=== PATIENT | female | born 1950 | race Caucasian/White ===

== ENCOUNTER 2017-02-28 09:15 | Day surgery (SDC) | payer OTHER ==
[~2017-02-28] VITALS: Ht 165.1 cm; Wt 80.8 kg
[2017-02-28] VITALS (12 sets, daily range): BP systolic 110–127; BP diastolic 66–78; PULSE 64–79; RESP 8–18; O2SAT 93–98
[2017-02-28] MEDS: Lactated Ringer's 1,000 ML IV SCH ×2 (05:42→10:50)
[~2017-02-28 09:15] MED LIST: CALC-140 PO; CETI10CA PO; CHOL200047 PO; CeFAZolin 2 Gm/50 mL D5W IV Premix IV ONE; MULT-1018 PO; TRM50C PO; VIT1TABL83 PO
[2017-02-28] MEDS ORDERED: fentaNYL-PF 50 mCg/mL 2 mL Inj ONE (09:16)
[2017-02-28] MEDS ORDERED: Dexamethasone 4 mg/mL Inj ONE (09:16)
[2017-02-28] MEDS ORDERED: Propofol 10,000 mCg/mL 20 mL Inj ONE (09:16)
[2017-02-28] MEDS ORDERED: Ondansetron 2 mg/mL 2 mL Inj ONE (09:16)
[2017-02-28] MEDS ORDERED: CeFAZolin Inj 2 gm / 50mL D5W IV ONE (09:23)
--- NOTE | 2017-02-28 10:40 | PCM.HPANE ---
Patient Data Date of Service: Feb 28, 2017 Surgeon Admitting Provider: Attending Provider:Alberto Beltrán DO Primary Care Physician:Rich Campbell MD Other Provider:Carrie Nunez Anesthesia Reason for Visit Left Extensor Pollicis Longus Tendon Rupture Ht/WT & BMI Height (Feet): 5 Height (Inches): 5.00 Weight (Kilograms): 80.8 Body Mass Index 29.00 Allergies Coded Allergies: Sulfa (Sulfonamide Antibiotics) (Verified Allergy, Unknown, 11/13/16) Past Anesthesia History Anesthesia History: Denies:: Anesthesia Reactions, Fam Anesthesia Reaction Diabetes History Hx Diabetes?: No MRSA MRSA: No Medications Hypertension Medication: Yes Home Meds Incl Beta Louise: No Reported Medications Calcium Carbonate/Vitamin D3 (Calcium + Vitamin D Tablet)1 Each Tablet1 Each PO DAILY 02/24/17 Cholecalciferol (Vitamin D3) (Vitamin D3)2,000 Unit Capsule2,000 Unit PO DAILY 02/24/17 Vit B Comp/C/FA/Iron/Vit E (Vitamin B Complex Tablet)1 Each Tablet1 Each PO DAILY 02/24/17 Multivitamin (Multi Vitamin Daily)1 Each Tablet1 Each PO DAILY 30 Days Ref 0 02/24/17 Cetirizine HCl (Zyrtec)10 Mg Amarjed69 Mg PO HS #30 CAPSULE Ref 0 02/24/17 Triamterene (Dyrenium)50 Mg Ocdwhic52 Mg PO DAILY 02/24/17 History History of ENT Problems?: Yes HEENT History: Positive for:: TMJ (grinds teeth, wears nightguard) Denies:: Cataracts Glaucoma Hearing Problem Hx of Heart Problems?: Yes Cardiovascular History: Positive for:: Hypertension Denies:: AICD Abdominal Aortic Aneurism Chest Pain Congestive Heart Failure Coronary Artery Disease Edema Heart Murmur Irregular Heartbeat Pacemaker Peripheral Vascular Rheumatic Fever Hx of Respiratory Problem?: No Respiratory History: Denies:: Asthma COPD Emphysema Oxygen Administration Pneumonia Tuberculosis Use of C-PAP Machine Use of Inhalers / NEBS Hx Neurologic Problems?: No Neurological History: Denies:: Alzheimer's Disease CVA Headaches Multiple Sclerosis Parkinson's Disease Seizures Hx of GI Problems?: No Gastrointestinal History: Denies:: Cirrhosis Gall Bladder Disease Gastroesphageal Reflux Gastrointestinal Bleeding Heartburn Hepatitis Hiatal Hernia Liver Disease Rectal Bleeding Hx of Problems?: No Genitourinary History: Denies:: Kidney Stones Urinary Tract Infection Female Hx: Denies:: Currently (post menopausal) Problems with Breasts? (benign breast cyst) Skin History: Denies:: History Skin Disorders? Pressure Ulcers Hx Musculoskeletal Problems?: Yes Musculoskeletal History: Positive for:: Musculoskeletal Trauma (left arm current admission problem- fx 10/2016) Osteoarthritis (knees) Denies:: Fibromyalgia Joint Replacement Myasthenia Gravis Systemic Lupus Hx of Psycho/Social Problems?: No Psycho Social History: Denies:: Anxiety Hx Depression Hx Surgeries?: Yes (knee scope, carpal tunnel release) Hx Any Other Health Problems?: Yes Other History: Denies:: Cancer Thyroid Disease History Blood Transfusions: Positive for:: Accept Blood Products? Denies:: Blood Transfusions Hx Diabetes: No Hx Alcohol Use: YesAlcoholic Drinks Per Day: one glass wine dailyHx Substance Use: No Smoking Status: Never Smoker Have You Smoked inLast 12 mo: No Stop/Bang S-Snoring: Do You Snore Loudly: No T-Tired: feel tired, fatigued: No O-Obsered: Observed not breath: No P-Blood Pressure: treated: Yes B- Body Mass Index > 35 kg/m2: No A- Age over 50: Yes N- Neck Large Circumference: No G- Gender Male: No YASMINE Total Score: 2 YASMINE Risk Assessment: Low Risk, <3 Yes Risk Assessment Category Category 1A: Patient has history of documented sleep apnea, and HAS NOT received any narcotic, sedative or anesthesia administration during this stay. Category 1B: Patient has history of documented sleep apnea, and HAS received any narcotic , sedative or anesthesia administration during this stay Category 2: Patient has SUSPECTED Obstructive Sleep Apnea, and HAS received any narcotic , sedative or anesthesia administration during this stay. Category 3: Patient has SUSPECTED Obstructive Sleep Apnea and HAS NOT received narcotic, sedative or anesthesia administration during this stay. Category 4: Outpatient in Procedural Areas with known sleep apnea or who screen positive for High Risk via the STOP/BANG questionnaire. Exam Exam Vital Signs Vital Signs Date Time Temp Pulse Resp B/P Pulse Ox O2 Delivery O2 Flow Rate FiO2 02/28/17 09:46 36.4 70 16 110/75 96 Room Air General Appearance: Alert, Oriented X3, Cooperative, No Acute Distress HEENT/AIRWAY: MP 2 Lungs: Normal Air Movement Heart: Exam Unremarkable Meds/Labs/Diagnostics Admission Meds Current Medications Lactated Ringer's (Lr) 1,000 ml @ 120 mls/hr [id number] IV Last administered on t 05:42; Start 02/28/17 at 05:00; Stop 02/28/17 at 13:19 Plan Impression Patient chart reviewed, patient interviewed and anesthestic plan with risks, benefits, and alternatives discussed, and informed consent obtained. NPO Status: 02/27 at 1930 ASA Physical Status: ASA2 Mod Systemic Disease Anesthetic Plan: GA Bene/Risks/Altern/Consents: Yes HP Complete Prior to Induction: Yes Gunnar Palencia MD Feb 28, 2017 10:20
[2017-02-28] MEDS ORDERED: Lactated Ringer's 1,000 ML IV SCH (10:47)
[2017-02-28] MEDS ORDERED: Lactated Ringer's 500 ML IV PRN (10:47)
[2017-02-28] MEDS ORDERED: Dexamethasone 4 mg/mL Inj IVPUSH PRN (10:50)
[2017-02-28] MEDS ORDERED: Ondansetron 2 mg/mL 2 mL Inj IVPUSH PRN (10:50)
[2017-02-28] MEDS ORDERED: MetoCLOpramide 5 mg/mL 2 mL Inj IVPUSH PRN (10:50)
[2017-02-28] MEDS ORDERED: Labetalol 5 mg/mL 4 mL Inj IV PRN (10:50)
[2017-02-28] MEDS ORDERED: Phenylephrine 10,000 mCg/mL Inj IVPUSH PRN (10:50)
[2017-02-28] MEDS ORDERED: fentaNYL-PF 50 mCg/mL 2 mL Inj IVPUSH PRN (10:50)
[2017-02-28] MEDS ORDERED: EPHEDrine Sulfate 50 mg/mL Inj IVPUSH PRN (10:50)
[2017-02-28] MEDS ORDERED: Atropine 0.4 mg/mL Inj IVPUSH PRN (10:50)
[2017-02-28] MEDS ORDERED: hydrALAZINE 20 mg/mL Inj IVPUSH PRN (10:50)
[2017-02-28] MEDS ORDERED: Lidocaine 1%-Epi 1:100,000 20 mL Inj INFILTRATE ONE (11:07)
--- NOTE | 2017-02-28 12:14 | PCM.ANEP1 ---
Post Anesthesia Phase 1 PACU Phase 1 Assessment Date of Service: Feb 28, 2017 Vital Signs Vital Signs Date Time Temp Pulse Resp B/P Pulse Ox O2 Delivery O2 Flow Rate FiO2 02/28/17 09:46 36.4 70 16 110/75 96 Room Air Anesthetic Administered: GA Level of Alertness: Awake, talking STALLWORTH's with Equal Strength: Yes Pain: No Nausea or Vomiting: No Oxygen Delivery: Nasal Cannula Lungs: Normal Air Movement Gunnar Palencia MD Feb 28, 2017 12:14
[2017-02-28] MEDS: HYDROmorphone 1 mg/mL Inj IVPUSH PRN ×3 (12:28→12:57)
--- NOTE | 2017-02-28 12:37 | PCM.ANEP2 ---
Post Anesthesia Evaluation ASA/CMS Post Anesthesia Date of Service: Feb 28, 2017 VS in Patient's Normal Range?: Yes Resp Stable; Airway Patent?: Yes CV Function & Hydration Stable: Yes Mental Status Recovered?: Yes Pain control Satisfactory?: Yes N/V Control Satisfactory?: Yes Gunnar Palencia MD Feb 28, 2017 12:37
[2017-02-28] MEDS: HYDROcodone-APAP 7.5-325 mg Tablet PO PRN ×2 (13:37→14:11)
[2017-02-28] MEDS ORDERED: HYDROcodone-APAP 7.5-325 mg Tablet PO ONE (14:25)
--- NOTE | 2017-02-28 23:22 | OP ---
[address] [address] OPERATIVE REPORT PATIENT: FOREIGN JUNIOR : 1950 MR#: [id number] ADMIT: 02/28/2017 JOB ID: [id number] DATE OF SURGERY: 02/28/2017 PREOPERATIVE DIAGNOSIS(ES): Left extensor pollicis longus tendon rupture. POSTOPERATIVE DIAGNOSIS(ES): Left extensor pollicis longus tendon rupture. PROCEDURE: Left extensor indicis proprius tendon transfer to the extensor pollicis longus. SURGEON: Alberto Beltrán DO. ANESTHESIA: General. HISTORY: The patient is a 66-year-old female who sustained a left distal radius fracture. She was originally seen and treated by Darrell Ontiveros MD. She was treated with cast immobilization and eventually brace followed by range of motion. Early on during her cast immobilization, she started having limited extension of the thumb following conversion to her brace and range of motion. She continued to have the same difficulties. An MRI was obtained demonstrating an EPL tendon rupture. I discussed with the patient the risks, benefits, and indications to proceed with an EPL tendon repair versus EIP to EPL tendon transfer due to the unknown exact date of when the rupture occurred. She understood the risks include, but are not limited to, neurovascular injury, tendon injury, infection, failure of fixation, stiffness, persistent pain, all which may require further intervention. The patient had all questions answered. Consent was signed and placed in the chart. PROCEDURE IN DETAIL: The patient was brought to the operative suite and placed supine on the operating table. Surgical time-out was performed and everyone in the room was in agreement. After appropriate anesthesia was obtained, a left upper arm tourniquet was applied, and the left upper extremity was prepped and draped in a sterile fashion. Left upper extremity was then exsanguinated and tourniquet inflated to 250 mmHg. A longitudinal incision was made just ulnar to Aura's tubercle. Dissection was carried down to the third dorsal compartment. The extensor pollicis longus tendon was found to be completely ruptured. The proximal stump was scarred down a few centimeters proximal to Aura's tubercle. The distal stump was unable to be identified even with undermining the distal aspect of the incision. A secondary incision was made overlying the course of the extensor pollicis longus above the STT joint. Dissection was carried down to the extensor pollicis longus tendon. The distal stump was easily delivered into the wound. There was significant tendinopathy to the end of the EPL distal stump. The ends were unable to be reapproximated and thus decision was made to proceed with am EIP to EPL tendon transfer. A third incision was made, this time a longitudinal incision overlying the second metacarpophalangeal joint. The ulnar-most tendon was identified which identified the extensor indicis proprius. This was again identified deep and radial to the 4th dorsal compartment in the most proximal incision. Once ensuring that appropriate tendon was identified, DIP tendon was transected from the distal incision and delivered back to the most proximal incision. The EIP was then shuttled to the incision overlying the STT joint. The ends of the EIP as well as the distal stump of the EPL were then cleanly cut back. A Pulvertaft weave was performed with three passes of the EIP through the distal stump of the EPL tendon. The suture weave was secured utilizing a 3-0 Ethibond. After the 1st stitch was placed, appropriate tension was checked with the wrist in full flexion, the thumb was fully extended with the wrist in full extension. The thumbs sat just above the index finger at the level of the radial aspect of the DIP joint. Each weave was reinforced with 3-0 Ethibond including the final coaptation sites both proximally and distally. With completion of the Pulvertaft weave, copious irrigation was performed and the incisions closed with 5-0 nylon in a supportive fashion. The patient was then placed in a well-padded, well-molded thumb spica splint. ESTIMATED BLOOD LOSS: Less than 1 cc. COMPLICATIONS: None. DISPOSITION: The patient tolerated the procedure well. Anesthesia was reversed, and the patient was transferred back to Recovery. POSTOPERATIVE PLAN: The patient will follow up with occupational therapy over the week and be transitioned into a thumb spica brace. She needs to treat this as a cast. It be for four full weeks of immobilization prior to initiating any range of motion of the thumb.
== END 2017-02-28 23:59 | disposition home or self-care (01) ==
LOC: SAS 09:15
PROVIDERS: ATTEND Orthopaedic Surgery
DX: S66.212A Strain of extensor muscle, fascia and tendon of left thumb at wrist and hand level, initial encounter (principal); I10 Essential (primary) hypertension; M17.0 Bilateral primary osteoarthritis of knee; W00.0XXA Fall on same level due to ice and snow, initial encounter; Y93.01 Activity, walking, marching and hiking; Y92.017 Garden or yard in single-family (private) house as the place of occurrence of the external cause; Y99.8 Other external cause status; Z87.891 Personal history of nicotine dependence
CPT/HCPCS: 26480; J0690; J1100; J1170; J2405; J3010; J7120